=== PATIENT | male | born 1995 | race Caucasian/White ===

== ENCOUNTER 2017-11-22 22:15 | Emergency (ER) | payer SELFPAY ==
[~2017-11-22] VITALS: Ht 170.2 cm; Wt 61.0 kg
[2017-11-22 22:17] VITALS: BP 126/72; PULSE 68; RESP 16; TEMP 98.3; O2SAT 98
--- NOTE | 2017-11-22 22:58 | RADRPT ---
EXAM DATE/TIME: 11/22/2017 22:45 [facility] COMPARISON: No previous studies available for comparison. INDICATIONS : Left arm pain, injured playing hockey. MEDICAL HISTORY : None. SURGICAL HISTORY : None. ENCOUNTER: Initial ACUITY: 1 day PAIN SCORE: 5/10 LOCATION: Left middle arm FINDINGS: Two view examination of the left forearm demonstrates mildly angulated fractures distal radius and ul amadeo shafts. No dislocation. CONCLUSION: 1. Mildly angulated fractures of the distal shaft of the radius and ulna. Jorge Ladd MD on November 22, 2017 at 22:55 Board Certified Radiologist. This report was verified electronically.
[2017-11-22] MEDS ORDERED: oxyCODONE/ACETAMINOPHEN 5 MG/325 MG TAB PO ONE (23:15)
[2017-11-22] MEDS ORDERED: PERC5TAB12 PO (23:18)
--- NOTE | 2017-11-22 23:18 | PD ---
HPI Chief Complaint: Injury Time Seen by Provider: 23:08 Travel History International Travel<30 days: No Contact w/Intl Traveler<30days: No Traveled to known affect area: No History of Present Illness HPI Patient is a 22-year-old male presented to the chart evaluation of left arm pain. Patient was laying hockey when he fell into the cold post hitting his left forearm into the post. Patient reports his pain is a 6 out of 10 and states it's sore and throbbing. He denies any numbness, tingling, weakness. Symptom onset was sudden, alleviating factors include the splint. Pain is exacerbated with movement and touch. Patient denies any significant past medical history. [facility] Past Medical History Medical History: Denies Significant Hx Social History Alcohol Use: No Tobacco Use: No Substance Use: No Allergies-Medications (Allergen,Severity, Reaction): Coded Allergies: No Known Allergies (Verified Allergy, Unknown, 11/22/17) Review of Systems Except as stated in HPI: all other systems reviewed are Neg Musculoskeletal: Positive: Myalgias, Arthralgias, Limited ROM, Pain Neurologic: No: Weakness, Paresthesia, Sensory Disturbance Physical Exam Narrative GENERAL: Well-developed, well-nourished alert male. Presenting in no acute distress. SKIN: Warm and dry. No rash or obvious lesions, abrasions noted. HEAD: Atraumatic. Normocephalic. EYES: Pupils equal and round. No scleral icterus. No injection or drainage. ENT: No nasal bleeding or discharge. Mucous membranes pink and moist. NECK: Trachea midline. No JVD. CARDIOVASCULAR: Regular rate and rhythm. RESPIRATORY: No accessory muscle use. Clear to auscultation. Breath sounds equal bilaterally. GASTROINTESTINAL: Abdomen soft, non-tender, nondistended. Hepatic and splenic margins not palpable. MUSCULOSKELETAL: Extremities without clubbing, cyanosis, or edema. Slight deformity noted to the left forearm just proximal to the wrist. No ecchymosis noted. 2+ radial pulse, brisk less than 3 second capillary refill. 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 NEUROLOGICAL: Awake and alert. No obvious cranial nerve deficits. Motor grossly within normal limits. Five out of 5 muscle strength in the arms and legs. Normal speech. PSYCHIATRIC: Appropriate mood and affect; insight and judgment normal. Data Data Last Documented VS Vital Signs Date Time Temp Pulse Resp B/P (MAP) Pulse Ox O2 Delivery O2 Flow Rate FiO2 11/22/17 22:17 98.3 68 16 126/72 (90) 98 Orders Orders Forearm (2vws) (11/22/17 ) Oxycodone-Acetamin 5-325 Mg (Percocet (11/22/17 23:15) MDM Medical Decision Making Medical Screen Exam Complete: Yes Emergency Medical Condition: Yes Interpretation(s) Last Impressions Radius/Ulna X-Ray 11/22/17 0000 Signed Impressions: Service Date/Time: Wednesday, November 22, 2017 22:45 - CONCLUSION: 1. Mildly angulated fractures of the distal shaft of the radius and ulna. Jorge Ladd MD Vital Signs Date Time Temp Pulse Resp B/P (MAP) Pulse Ox O2 Delivery O2 Flow Rate FiO2 11/22/17 22:17 98.3 68 16 126/72 (90) 98 Differential Diagnosis Fracture versus sprain versus strain versus contusion versus other Narrative Course Patient is a 22-year-old male presenting for evaluation of left forearm pain after sustaining an injury while playing hockey. Patient's vital signs are stable, x-ray shows mildly angulated fractures of the distal shaft of the radius and ulna. Patient will be placed in a sugar tong splint. He was given Percocet for pain prior to splinting. Patient will follow up with orthopedic surgeon in 3-5 days. He is encouraged to return to emergency department for any new or worsening symptoms. Patient was advised to keep extremity elevated to help alleviate pain and swelling. She was advised to return to the department immediately for any new or worsening symptoms. Patient and parents verbalized understanding of these instructions. Patient stable for discharge. Diagnosis Primary Impression: Radius and ulna distal fracture Qualified Codes: S52.502A - Unspecified fracture of the lower end of left radius, initial encounter for closed fracture; S52.602A - Unspecified fracture of lower end of left ulna, initial encounter for closed fracture Referrals: Orthopaedic Surgeon 3 days Patient Instructions: Arm Fracture in Adults (ED), General Instructions Additional Instructions: Keep extremity elevated Follow-up with orthopedic surgeon Take medications as needed and as directed for pain Return to emergency department immediately for any new or worsening symptoms Med/Other Pt SpecificInfo: Prescription(s) given Scripts Oxycodone-Acetaminophen (Percocet) 5-325 mg Tab 1 TAB PO Q6H Y for PAIN, #10 TAB 0 Refills Prov: Mami Nguyen 11/22/17 Disposition: 01 DISCHARGE HOME Condition: Stable Mami Nguyen Nov 22, 2017 23:18
--- NOTE | 2017-11-23 00:31 | RADRPT ---
EXAM DATE/TIME: 11/23/2017 00:00 [facility] COMPARISON: No previous studies available for comparison. INDICATIONS : Post Reduction- Pt fell playing hockey MEDICAL HISTORY : None. SURGICAL HISTORY : None. ENCOUNTER: Subsequent ACUITY: 1 day PAIN SCORE: 7/10 LOCATION: Left Forearm FINDINGS: Two view examination of the left forearm demonstrates mildly angulated fractures of the distal radius and ulna status post cast placement. No dislocation. CONCLUSION: 1. Status post cast placement with minimal residual angulation at the fractures of the distal radius and ulna. Jorge Ladd MD on November 23, 2017 at 0:27 Board Certified Radiologist. This report was verified electronically.
== END 2017-11-22 23:22 | disposition home or self-care (01) ==
LOC: NEPD 22:15
DX: S52.502A Unspecified fracture of the lower end of left radius, initial encounter for closed fracture (principal); S52.602A Unspecified fracture of lower end of left ulna, initial encounter for closed fracture; W18.30XA Fall on same level, unspecified, initial encounter; Y93.65 Activity, lacrosse and field hockey
CPT/HCPCS: 29125; 73090